=== PATIENT | female | born 1975 | race Caucasian/White ===

== ENCOUNTER 2022-04-03 12:55 | Observation (INO) ==
[2022-04-03] MEDS ORDERED: Aspirin 81 MG TAB.CHEW PO ONE (13:52)
[2022-04-03 14:22] LABS: Basophils # 0.1 K/mcL (0.0-0.2); Basophils % 0.6 %; Eosinophils # 0.3 K/mcL (0.0-0.6); Eosinophils % 2.9 %; Hematocrit 44.6 % (35.3-44.9); Hemoglobin 14.6 g/dL (11.5-15.4); Immature Granulocytes % 0.2 % (0-4); Lymphocytes # 2.1 K/mcL (0.6-4.6); Lymphocytes % 21.4 %; Mean Corpuscular HGB Conc 32.7 g/dL (31.6-35.5); Mean Corpuscular Hemoglobin 29.6 pg (28.0-33.3); Mean Corpuscular Volume 90.5 fL (83.0-100.0); Mean Platelet Volume 9.1 fL (9.4-12.4); Monocytes # 0.6 K/mcL (0.0-1.3); Monocytes % 5.8 %; Neutrophils # 6.9 K/mcL (1.6-8.9); Platelet Count 288 K/mcL (140-400); Red Blood Count 4.93 M/mcL (3.82-4.97); Red Cell Distribution Width 12.5 % (11.5-14.5); Segmented Neutrophils % 69.1 %; White Blood Count 9.9 K/mcL (4.3-11.1)
[2022-04-03 14:44] LABS: Alanine Aminotransferase 12 Units/L (7-52); Albumin 4.4 g/dL (3.5-5.7); Albumin/Globulin Ratio 1.6 (1.1-2.2); Alkaline Phosphatase 72 Units/L (34-104); Aspartate Amino Transferase 11 Units/L (13-39); BUN/Creatinine Ratio 16 (6-26); Bilirubin,Direct 0.1 mg/dL (0.0-0.2); Bilirubin,Indirect 0.2 mg/dL (0.0-1.0); Bilirubin,Total 0.3 mg/dL (0.3-1.0); Blood Urea Nitrogen 16 mg/dL (6-20); Calcium 9.4 mg/dL (8.6-10.3); Carbon Dioxide 27 mEq/L (23-29); Chloride 105 mEq/L (98-107); Globulin 2.7 g/dL (2.4-3.5); Glucose 112 mg/dL (70-105); Lipase 20 Units/L (11-82); Osmolality,Calculated 290 (280-300); Potassium 3.9 mEq/L (3.5-5.1); Sodium 139 mEq/L (136-145); Total Protein 7.1 g/dL (6.4-8.9); Troponin I < 0.03 ng/mL (< 0.04)
[2022-04-03] MEDS ORDERED: Iopamidol - 370 500 ML MLS IVP ONE (14:52)
[2022-04-03] MEDS ORDERED: MOM Conc 10 ML UD.LIQ PO PRN (16:26)
[2022-04-03] MEDS ORDERED: Mag Hydrox/Al Hydrox/Simeth 30 ML UDC PO PRN (16:26)
[2022-04-03] MEDS ORDERED: Melatonin 3 MG TABLET PO PRN (16:26)
[2022-04-03] MEDS ORDERED: Acetaminophen 325 MG TABLET PO PRN (16:26)
[2022-04-03] MEDS ORDERED: Ondansetron 4 MG/2 ML VIAL IVP PRN (16:26)
[2022-04-03] MEDS ORDERED: Naloxone 0.4 MG/ML INJ IVP PRN (16:26)
[2022-04-03] MEDS: *HR* Heparin 5,000 UNIT/ML VIAL SQ SCH (21:32)
[2022-04-03] MEDS ORDERED: lisinopriL 10 MG TABLET PO SCH (21:45)
[2022-04-04 03:07] LABS: Hematocrit 44.3 % (35.3-44.9); Hemoglobin 14.6 g/dL (11.5-15.4); Mean Corpuscular Hemoglobin 29.7 pg (28.0-33.3); Mean Corpuscular Volume 90.2 fL (83.0-100.0); Mean Platelet Volume 9.1 fL (9.4-12.4); Platelet Count 280 K/mcL (140-400); Red Blood Count 4.91 M/mcL (3.82-4.97); Red Cell Distribution Width 12.7 % (11.5-14.5)
[2022-04-04 03:31] LABS: Calcium 9.2 mg/dL (8.6-10.3); Chol/HDL Ratio 4.3 (0-4.9); Magnesium 2.3 mg/dL (1.6-2.6); Potassium 4.1 mEq/L (3.5-5.1)
[2022-04-04] MEDS: *HR* Heparin 5,000 UNIT/ML VIAL SQ SCH ×2 (06:13→14:16)
[2022-04-04] MEDS ORDERED: Regadenoson 0.4 MG/5 ML SYRINGE IVP ONE (07:17)
[2022-04-04] MEDS ORDERED: Aspirin 81 MG TAB.CHEW PO SCH (09:00)
[2022-04-04 11:29] VITALS: O2SAT 97
[2022-04-04 15:00] VITALS: BP 159/90; PULSE 110; TEMP 98
== END 2022-04-04 15:45 | disposition home or self-care (01) ==
LOC: EMEROOARM 12:55 → 3BNU 12:55
PROVIDERS: ADMIT Internal Medicine; ATTEND Internal Medicine